=== PATIENT | female | born 1940 | race American Indian/Alaskan Native ===

== ENCOUNTER 2017-04-30 11:01 | Outpatient (CLI) | payer MEDICARE ==
--- NOTE | 2017-05-01 12:57 | Mammography Report ---
BILATERAL DIGITAL SCREENING MAMMOGRAM with CAD: 04/30/17 11:01:00 CLINICAL: Routine screening. COMPARISON:01/21/16 FINDINGS: The breasts are almost entirely fatty. No mass, architectural distortion or suspicious calcifications. IMPRESSION: No mammographic evidence of malignancy. BI-RADS CATEGORY: 1 - - Negative RECOMMENDATION: Routine mammographic screening in one year. COMMENT: Patient follow-up letters are generated by our [employer] application.
== END 2017-04-30 11:02 | disposition home or self-care (01) ==
LOC: MAMMO 11:01
PROVIDERS: ATTEND Internal Medicine
DX: Z12.31 Encounter for screening mammogram for malignant neoplasm of breast (principal)
CPT/HCPCS: 77067; G0202

== ENCOUNTER 2019-05-06 11:06 | Outpatient (CLI) | payer MEDICARE ==
--- NOTE | 2019-05-06 12:13 | Mammography Report ---
DIGITAL SCREENING MAMMOGRAM WITH CAD, 05/06/2019 INDICATION: Routine screening mammography. TECHNIQUE: Digital bilateral 2D mammography was obtained in the craniocaudal and mediolateral obliq ue projections. This examination was interpreted with the benefit of Computer-Aided Detection analysi s. COMPARISON: 05/05/2018 and mammograms going back to 11/12/2009 FINDINGS: Breast Density: There are scattered areas of fibroglandular density. Right asymmetries on both views require additional imaging. No architectural distortion or suspicious calcifications of the right breast. There is no evidence of dominant mass, suspicious calcifications or architectural distortion in the left breast. IMPRESSION: Right asymmetries requiring additional imaging. Recommend recall for right lateral and sp ot compression MLO and CC views and right breast ultrasound if needed. Follow up recommendation: Special View: Spot Category 0: Incomplete. Needs additional imaging evaluation and/or prior mammograms for comparison. A "normal" or negative report should not discourage follow up or biopsy of a clinically significant f inding. A written summary of these findings will be mailed to the patient. The patient will be entered into a mammography reporting system which will generate a reminder letter for the patient's next appointmen t at the appropriate interval. The [employer] recommends yearly mammograms starting at age 40 and continuing as l alphonse as a woman is in good health. Breast MRI is recommended for women with an approximate 20-25% or greater lifetime risk of breast cancer, including women with a strong family history of breast or ova jesenia cancer or who have been treated for Hodgkin's disease. Signer Name: Jose Bartlett MD Signed: 05/06/2019 12:09 PM Workstation Name: [id number]
== END 2019-05-06 11:07 | disposition home or self-care (01) ==
LOC: MAMMO 11:06
PROVIDERS: ATTEND Internal Medicine
DX: Z12.31 Encounter for screening mammogram for malignant neoplasm of breast (principal); N64.89 Other specified disorders of breast
CPT/HCPCS: 77067